=== PATIENT | male | born 1990 | race Caucasian/White ===

== ENCOUNTER 2016-09-07 15:46 | Emergency (ER) | payer OTHER ==
[2016-09-07] MEDS ORDERED: NS 1,000 ML IV ONE ×2 (15:53→17:38)
--- NOTE | 2016-09-07 16:12 | PROVIDER DOCUMENTATION ---
HPI-General Adult - General Source: patient <Jackie Carrasco - Last Filed: 09/07/16 18:10> <Andrés Aguilera - Last Filed: 09/07/16 19:40> - General Chief Complaint: Nausea/Vomiting Stated Complaint: NAUSEA/VOMITING Time Seen by Provider: 09/07/16 15:50 Allergies/Adverse Reactions: Patient Allergies Allergy/AdvReac Type Severity Reaction Status Date / Time No Known Allergies Allergy Verified 09/07/16 16:51 Home Medications: Home Medication List Medication Instructions Recorded Confirmed Last Taken Type Ciprofloxacin 500 mg PO BID #10 ml 09/07/16 Unknown Rx Review of Systems - Adult - REVIEW OF SYSTEMS - ADULT Constitutional: denies: chills, fever Eyes: denies: decreased vision, eye pain Ears, Nose, Mouth & Throat: reports: no symptoms reported Cardiovascular: reports: no symptoms reported Respiratory: denies: pleurisy, wheezing Gastrointestinal: reports: nausea, vomiting. denies: abdominal pain, diarrhea Genitourinary: denies: frequent UTI's, incontinence Musculoskeletal: reports: no symptoms reported Integumentary: denies: nail changes, skin sores/ulcer Neurological: reports: no symptoms reported Psychiatric: reports: no symptoms reported Endocrine: reports: no symptoms reported Hematologic/Lymphatic: reports: no symptoms reported Allergic/Immunologic: reports: no symptoms reported All Other Systems: Reviewed and Negative <Jackie Carrasco - Last Filed: 09/07/16 18:10> Past History - Adult - PAST MEDICAL HISTORY-ADULT Review of Records: reports: Old Records Reviewed, Nursing Assessment Review Major Childhood Illnesses: reports: denies history Cardiovascular: reports: denies history Respiratory: reports: denies history Gastrointestinal: reports: denies history Obstetrical/Gynecological: reports: denies history Genitourinary: reports: denies history Musculoskeletal: reports: denies history Neurological: reports: denies history Endocrine/Immune: reports: denies history Other Conditions: reports: denies history - FAMILY HISTORY Family History: reviewed, not pertinent <Carlos Carrasconzie - Last Filed: 09/07/16 18:10> Physical Exam-General - PHYSICAL EXAM-ADULT Initial Vital Signs Reviewed: Yes - CONSTITUTIONAL General Appearance: alert, no apparent distress - EYES Eyes: PERRL/EOMI, pink conjunctivae, fundi clear, no AV nicking - HEAD, EARS, NOSE, MOUTH & THROAT HENMT: normocephalic/atraumatic, moist mucous membranes, normal ENT inspection, TMs normal, pharynx normal - NECK Neck: non-tender - RESPIRATORY Respiratory: chest non-tender, lungs clear, normal breath sounds, no pleuratic chest pain, no respiratory distress, no accessory muscle use - CARDIOVASCULAR Cardiovascular: normal peripheral pulses, regular rate, rhythm, no edema, no gallop, no JVD, no murmur - GASTROINTESTINAL (ABDOMEN) Abdominal Exam: normal bowel sounds, non tender, soft - LYMPHATIC Lymphatic: no adenopathy - MUSCULOSKELETAL Back Exam: normal inspection, no CVA tenderness, no vertebral tenderness Extremity: normal range of motion, non-tender, normal gait - SKIN Integumentary: normal turgor - NEUROLOGIC Neurologic: grossly normal - PSYCHIATRIC Psych/Mental Status: normal mood/affect, normal thought content, normal thought process, oriented x 3 <Jackie Carrasco - Last Filed: 09/07/16 18:10> Progress - PLAN OF CARE/RESULTS Progress/Plan/Lab Results: Vital Signs - 24 hr 09/07/16 16:02 Temperature 97.3 F L Pulse Rate 100 H Respiratory 18 Rate Blood Pressure 107/74 O2 Sat by Pulse 98 Oximetry Orders Category Date Time Status ABDOMEN FLAT/UPRIGHT [RAD] Stat Exams 09/07/16 15:53 Ordered ALCOHOL BLOOD Stat Lab 09/07/16 15:59 Ordered CBC WITH ELECTRONIC DIFF [HEME] Stat Lab 09/07/16 15:59 Ordered CMP [COMPREHENSIVE METABOLIC PANEL] [CHEM] Stat Lab 09/07/16 15:59 Ordered PT REQUESTED UDS Stat Lab 09/07/16 15:52 Uncollected UA NIMS W/REFLEX CULT [URINALYSIS] Stat Lab 09/07/16 15:51 Uncollected 0.9% Sodium Chloride Inj [Ns] 1,000 ml Med 09/07/16 15:53 Active IV 999 mls/hr - CHANGE OF SHIFT REPORT (ED Provider) Report Given and Care Transferred to:: Dr. Aguilera Time of Transfer: 17:50 <Jackie Carrasco - Last Filed: 09/07/16 18:10> Departure <Jackie Carrasco - Last Filed: 09/07/16 18:10> - Departure Time of Disposition Order: 19:37 Certified Medical Emergency: Emergent <Andrés Aguilera - Last Filed: 09/07/16 19:40> - Departure DIAGNOSIS: Gastroenteritis Disposition: HOME 01 Condition: Fair Prescriptions: Ciprofloxacin 500 mg PO BID #10 ml Attestation - Scribe Verification/Attestation Scribe:: Jackie Carrasco Acting as Scribe for:: Alejandro Mandel Scribe documention review:: This chart was documented by a scribe and accurately reflects the service the provider performed and the decisions made by the provider. - Scribe Verification/Attestation #2 Shift Change Time: 17:50 Scribe Name: Bo Carcamo Acting as Scribe for:: Andrés Aguilera <Jackie Carrasco - Last Filed: 09/07/16 18:10> Physician Attestation
[2016-09-07 16:24] LABS: MANUAL DIFF NEEDED? NO
[2016-09-07 16:28] LABS: BASO% 0.2 % (0.0-0.8); EOS% 1.1 % (0.0-10.0); HEMATOCRIT 41.3 % (42.0-52.0); HEMOGLOBIN 14.8 g/dL (14.0-18.0); IMM GRAN# 0.02 X1000 (0.0-0.04); IMM GRAN% 0.2 % (0.0-0.5); LYMPH# 2.26 X1000 (1.2-3.4); LYMPH% 24.4 % (20.5-51.1); MCHC 35.8 g/dL (33-37); MCV 83.6 FL (81-99); MONO# 0.53 X1000 (0.11-0.59); MONO% 5.7 % (1.7-9.3); MPV 10.5 FL (7.4-10.4); NEUT% 68.4 % (42.2-75.2); PLT 273 X1000 (130-400); RBC 4.94 XMIL (4.7-6.1)
[2016-09-07 16:51] LABS: AGAP 15; ALBUMIN 4.4 g/dL (3.5-5.0); ALKALINE PHOSPHATASE 74 U/L (32-122); BUN 19 mg/dL (8-22); CHLORIDE 96 mmol/L (98-107); COSMO 275; GOT 26 U/L (10-34); GPT 34 U/L (10-44); POTASSIUM 3.3 mmol/L (3.5-5.1); SODIUM 136 mmol/L (136-145); TCO2 25 mmol/L (25-35); TOTAL BILIRUBIN 0.25 mg/dL (0.20-1.00); TOTAL PROTEIN 7.2 g/dL (6.3-8.3)
[2016-09-07] MEDS ORDERED: NS 1,000 ML ONE (17:38)
[2016-09-07 18:18] LABS: URINE CULTURE NEEDED? NO; URINE MICRO REVIEW NEEDED? NO; URINE SOURCE CLEAN CATCH
[2016-09-07 18:22] LABS: BILIRUBIN URINE NEGATIVE (NEGATIVE); BLOOD URINE NEGATIVE (NEGATIVE); COLOR YELLOW; GLUCOSE URINE NEGATIVE (NEGATIVE); LEUKOCYTES URINE NEGATIVE (NEGATIVE); NITRITE URINE NEGATIVE (NEGATIVE); PH URINE 7.5; PROTEIN URINE TRACE mg/dL (NEGATIVE); SP GRAVITY URINE 1.027; TURBIDITY URINE CLEAR (CLEAR); UR EPITHELIAL CELLS <10 /HPF (<10); URINE BACTERIA NEGATIVE /HPF; URINE RBC <10 /HPF (<10); URINE WBC <10 /HPF (<10); UROBILINOGEN URINE NORMAL (NORMAL)
[2016-09-07 18:36] LABS: UR AMPHETAMINES QUAL NONE DETECTED (NONE DETECT); UR BARBITUATES QUAL NONE DETECTED (NONE DETECT); UR BENZODIAZEPIN QUAL NONE DETECTED (NONE DETECT); UR CANNABINOIDS QUAL PRESUMPTIVE POSITIVE (NONE DETECT); UR COCAINE QUAL NONE DETECTED (NONE DETECT); UR METHADONE QUAL NONE DETECTED (NONE DETECT); UR OPIATES QUAL NONE DETECTED (NONE DETECT); UR OXYCODONE QUAL NONE DETECTED (NONE DETECT); UR PCP QUAL NONE DETECTED (NONE DETECT)
--- NOTE | 2016-09-07 18:42 | Diag Imaging Result Document ---
PROCEDURE NAME: ABDOMEN FLAT/UPRIGHT - 09/07/2016 FLAT AND UPRIGHT OF ABDOMEN, 2 VIEWS: There is stool throughout the colon. The bowel loops are not dilated. No free air beneath the diaphragm. No organomegaly. No abnormal abdominal or pelvic calcifications. Slight curvature to the spine. IMPRESSION: Mild constipation.
[2016-09-07 20:03] VITALS: BP 110/73
== END 2016-09-07 20:32 | disposition home or self-care (01) ==
LOC: EDBD → ED 15:46
DX: K52.9 Noninfective gastroenteritis and colitis, unspecified (principal); R11.2 Nausea with vomiting, unspecified
CPT/HCPCS: 74020; 80053; 81001; 85025; 96360; 96361; G0480; J7030; 80320; 80324; 80345; 80346; 80349; 80353; 80358; 80361; 80365; 83992